=== PATIENT | female | born 2000 | race American Indian/Alaskan Native ===

== ENCOUNTER 2021-01-06 14:10 | Emergency (ER) | payer SELFPAY ==
[2021-01-06] MEDS ORDERED: HYDROcodone/ACETAMINOPHEN 7.5-325MG TAB PO ONE (15:15)
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
[2021-01-06] MEDS ORDERED: HYDROGEN PEROXIDE 118 ML SOLUTION TP ONE (15:57)
[2021-01-06 15:59] VITALS: BP 111/73
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
[2021-01-06] MEDS ORDERED: LIDOCAINE (1%) 10 MG/1 ML VIAL 20 ML MDV INFILTRATI ONE (17:15)
== END 2021-01-06 18:53 | disposition home or self-care (01) ==
LOC: ED 14:10
DX: S09.93XA Unspecified injury of face, initial encounter (principal); Z79.899 Other long term (current) drug therapy; X58.XXXA Exposure to other specified factors, initial encounter; Y93.89 Activity, other specified; Y92.89 Other specified places as the place of occurrence of the external cause; Y99.8 Other external cause status
CPT/HCPCS: 70110; 99283